=== PATIENT | male | born 1975 | race Two or more races ===

== ENCOUNTER 2022-01-14 23:49 | Emergency (ER) | payer OTHER ==
[~2022-01-14] VITALS: Ht 172.7 cm; Wt 143.3 kg
[2022-01-15] MEDS ORDERED: COZAAR50 MG PO (04:10)
== END 2022-01-15 04:26 | disposition home or self-care (01) ==
LOC: ER 23:49
DX: I10 Essential (primary) hypertension (principal); Z88.6 Allergy status to analgesic agent; Z88.0 Allergy status to penicillin